=== PATIENT | male | born 1970 | race Caucasian/White ===

== ENCOUNTER → 2024-03-24 17:18 | Outpatient (CLI) | payer OTHER, SELFPAY ==
--- NOTE | 2024-03-24 17:25 | DI.MRI.S_ITS ---
PROCEDURE: MR ELBOW RT WO/W CON INDICATIONS: INFECTED OLECRANON BURSA TECHNIQUE: Noncontrast coronal proton density fast spin echo and T2 fast spin echo with fat saturation, coronal T1 spin echo with fat saturation, axial and sagittal T1 spin echo and T2 fast spin echo with fat saturation through the elbow. Post-contrast coronal, axial, and sagittal T1 spin echo with fat saturation through the elbow. COMPARISON: None. FINDINGS: Image quality: Excellent. Lateral structures: The lateral ulnar collateral ligament and radial collateral ligament both appear thickened. The overlying common extensor tendon also appears thickened with intrasubstance T2 hyperintense signal at its lateral epicondylar insertion Medial structures: The ulnar collateral ligament appears intact. The overlying common flexor tendon appears normal. The ulnar nerve appears normal in size and signal within the cubital tunnel. Anterior structures: The biceps and brachialis tendons both appear intact as they insert onto the proximal radius and ulna, respectively. No bicipitoradial bursal fluid. The median and radial neurovascular bundles appear normal; no focal muscle atrophy to suggest nerve impingement. Posterior structures: Significant subcutaneous soft tissue edema and swelling over dorsal aspect of proximal olecranon on with small amount of fluid distending olecranon bursa is seen. No discrete drainable peripherally enhancing abscess collection. Tendinosis and low to moderate grade partial-thickness tear involving distal triceps tendon at its proximal olecranon insertion is seen. Bone and cartilage: Extensive marrow edema involving proximal olecranon at triceps tendon insertion is seen with linear hypointense signal and cortical irregularity likely represent avulsion injury in this area. Infectious process cannot be excluded. Contrast enhancement within proximal olecranon is seen. No other area of marrow signal abnormality or enhancement. IMPRESSION: 1. Significant soft tissue swelling and edema involving dorsal elbow soft tissue all particularly over olecranon with suggestion of fluid distending olecranon bursa concerning for cellulitis and bursitis. No discrete drainable abscess collection is seen. Early infected bursal fluid cannot be excluded. 2. Extensive marrow edema involving proximal olecranon with cortical irregularity involving olecranon near distal triceps tendon insertion. Finding likely represent avulsion injury . Osteomyelitis cannot be entirely excluded, suggest clinical correlation. 3. No other area of abnormal marrow signal or intraosseous enhancement. 4. Suggestion of mild lateral epicondylitis as above. Dictated by: Praveen Santamaria M.D. on 03/27/2024 at 12:21 Approved by: Praveen Santamaria M.D. on 03/27/2024 at 12:32
== END ==
PROVIDERS: Referring Provider Orthopaedic Surgery; Visit Provider Orthopaedic Surgery
DX: M70.21 Olecranon bursitis, right elbow (principal); M79.89 Other specified soft tissue disorders; M25.421 Effusion, right elbow
CPT/HCPCS: 73223; A9579